=== PATIENT | female | born 2000 | race Two or more races ===

== ENCOUNTER 2023-06-12 10:12 | Outpatient (CLI) | payer OTHER ==
[~2023-06-12 10:12] MED LIST: OBSTETRIX ONE 38-1-2
== END 2023-06-12 11:18 | disposition home or self-care (01) ==
LOC: NST 10:12
PROVIDERS: ATTEND Obstetrics & Gynecology Gynecology
DX: Z34.83 Encounter for supervision of other normal pregnancy, third trimester (principal)

== ENCOUNTER 2023-06-16 12:13 | Outpatient (CLI) | payer OTHER | END 2023-06-16 13:04 | disposition home or self-care (01) | LOC: NST 12:13 | PROVIDERS: ATTEND Obstetrics & Gynecology | DX: Z34.83 Encounter for supervision of other normal pregnancy, third trimester (principal); R10.2 Pelvic and perineal pain ==

== ENCOUNTER 2023-06-19 11:10 | Inpatient (IN) | payer OTHER ==
[~2023-06-19] VITALS: Ht 162.6 cm; Wt 68.0 kg
[2023-06-21] MEDS ORDERED: PRENATAL TABLE1 EAC1 PO (10:07)
== END 2023-06-23 14:52 | disposition home or self-care (01) | DRG 807 ==
LOC: LDR 06-21 09:42 → OB/GYN 06-21 09:42
PROVIDERS: ADMIT Obstetrics & Gynecology; ATTEND Obstetrics & Gynecology
PROC: 10E0XZZ Delivery of Products of Conception, External Approach (ICD-10-PCS; principal; 2023-06-21)
PROC: 0UQG7ZZ Repair Vagina, Via Natural or Artificial Opening (ICD-10-PCS; 2023-06-21)
PROC: 0UQMXZZ Repair Vulva, External Approach (ICD-10-PCS; 2023-06-21)
PROC: 4A1HXCZ Monitoring of Products of Conception, Cardiac Rate, External Approach (ICD-10-PCS; 2023-06-21)
DX: O70.0 First degree perineal laceration during delivery (principal); Z37.0 Single live birth; Z3A.38 38 weeks gestation of pregnancy; Z20.822 Contact with and (suspected) exposure to COVID-19